=== PATIENT | female | born 1995 | race Two or more races ===

== ENCOUNTER 2018-03-20 10:54 | Emergency (ER) | payer MEDICAID ==
[~2018-03-20] VITALS: Ht 154.9 cm; Wt 61.2 kg
[2018-03-20 11:22] VITALS: BP 107/62
[2018-03-20 12:41] LABS: Basophils # (auto) 0 uL; Basophils % (auto) 0.2 % (0.0-2.0); Eosinophils # (auto) 0 uL; Eosinophils % (auto) 0.4 % (0.0-7.0); Hematocrit 38.4 % (36.0-46.0); Hemoglobin 13.4 g/dL (12.2-16.2); Lymphocytes # (auto) 2.4 uL; Lymphocytes % (auto) 25.9 % (10.0-50.0); Mean Corpuscular Hemoglobin 30.9 pg (28.0-32.0); Mean Corpuscular Hgb Conc. 34.8 g/dL (32.0-36.0); Mean Corpuscular Volume 88.9 fL (80.0-100.0); Monocytes # (auto) 0.6 uL; Monocytes % (auto) 6.3 % (0.0-12.0); Neutrophils # (auto) 6.3 uL; Neutrophils % (auto) 67.2 % (37.0-80.0); Platelet Count (auto) 199 10^3/uL (140-450); Red Blood Cells 4.32 10^6/uL (4.0-5.20); Red Cell Distribution Width 13.5 % (11.8-14.3); White Blood Cell 9.3 10^3/uL (4.4-10.8)
[2018-03-20 13:16] LABS: Urine Bacteria FEW /hpf (None Seen); Urine Blood Negative /uL (Negative); Urine Mucus FEW (None Seen); Urine Specific Gravity 1.024 (1.001-1.035); Urine WBC 16 /hpf (0 - 5)
== END 2018-03-20 17:45 | disposition left against medical advice (07) ==
LOC: ER 10:54
DX: N39.0 Urinary tract infection, site not specified (principal); Z32.01 Encounter for pregnancy test, result positive
CPT/HCPCS: 36415; 81001; 84702; 85025

== ENCOUNTER 2018-09-04 19:46 | Observation (INO) | payer MEDICAID ==
[~2018-09-04] VITALS: Ht 154.9 cm; Wt 70.8 kg
[2018-09-04] MEDS ORDERED: ONDANSETRON ODT 4 MG TAB PO ONE (20:30)
== END 2018-09-04 20:55 | disposition home or self-care (01) | DRG 566 ==
LOC: LDRP 19:46
PROVIDERS: ADMIT Obstetrics & Gynecology; ATTEND Obstetrics & Gynecology
DX: O62.9 Abnormality of forces of labor, unspecified (principal); O21.2 Late vomiting of pregnancy; Z3A.36 36 weeks gestation of pregnancy
CPT/HCPCS: 59025; 81002; G0378; Q0162

== ENCOUNTER 2021-08-09 16:34 | Emergency (ER) | payer MEDICAID ==
[~2021-08-09] VITALS: Ht 154.9 cm; Wt 65.8 kg
[~2021-08-09 16:34] MED LIST: PREN-96 PO
[2021-08-09] MEDS ORDERED: LIDOCAINE 1% HCL (LOCAL ANESTH.) INJ 20ML MDV IJ ONE (20:00)
[2021-08-09] MEDS ORDERED: TETANUS-DIPTH-ACEL PERTUSSIS 0.5ML SYR Tdap IM ONE (20:00)
[2021-08-09 20:56] VITALS: BP 119/58
== END 2021-08-09 20:21 | disposition home or self-care (01) ==
LOC: ER 16:34
DX: S61.412A Laceration without foreign body of left hand, initial encounter (principal); S60.221A Contusion of right hand, initial encounter; Z79.899 Other long term (current) drug therapy; W25.XXXA Contact with sharp glass, initial encounter; Y93.89 Activity, other specified; Y92.89 Other specified places as the place of occurrence of the external cause; Y99.8 Other external cause status
CPT/HCPCS: 12001; 90471; 90715; 99283; J2001

== ENCOUNTER 2022-08-24 17:35 | Inpatient (IN) | payer MEDICAID ==
[~2022-08-24] VITALS: Ht 154.9 cm; Wt 76.2 kg
[2022-08-24 18:33] LABS: Basophils # (auto) 0 10 ^3/uL (0-0.2); Basophils % (auto) 0.2 % (0.0-2.0); Eosinophils # (auto) 0.1 10 ^3/uL (0-0.8); Eosinophils % (auto) 1.1 % (0.0-7.0); Hematocrit 35.9 % (36.0-46.0); Lymphocytes # (auto) 1.8 10 ^3/uL (0.4-5.4); Lymphocytes % (auto) 18.8 % (10.0-50.0); Mean Corpuscular Hemoglobin 29.6 pg (28.0-32.0); Mean Corpuscular Hgb Conc. 33.5 g/dL (32.0-36.0); Mean Corpuscular Volume 88.3 fL (80.0-100.0); Monocytes # (auto) 0.5 10 ^3/uL (0-1.3); Monocytes % (auto) 5.1 % (0.0-12.0); Neutrophils # (auto) 7.2 10 ^3/uL (1.6-8.6); Neutrophils % (auto) 74.8 % (37.0-80.0); Red Blood Cells 4.06 10^6/uL (4.0-5.20); Red Cell Distribution Width 15.8 % (11.8-14.3); White Blood Cell 9.6 10^3/uL (4.4-10.8)
[2022-08-24] MEDS: LACTATED RINGER'S 1,000 ML IV SCH (18:44)
[2022-08-24 18:54] LABS: Albumin 2.7 g/dL (3.4-5.0); Potassium 3.7 mmol/L (3.5-5.1)
[2022-08-24 18:56] LABS: BUN/Creatinine Ratio 11.3
[2022-08-24 18:59] LABS: Bilirubin, Total 0.2 mg/dL (0.2-1.0); Total Protein 7.5 g/dL (6.4-8.2)
[2022-08-24 19:21] LABS: INR 0.9 (0.9-1.15); Partial Thromboplastin Time 28.2 sec (24.6-33.4)
[2022-08-24 19:29] LABS: Urine Bacteria NONE SEEN /hpf (None Seen); Urine Blood Negative /uL (Negative); Urine Specific Gravity 1.005 (1.001-1.035); Urine WBC 8 /hpf (0 - 5)
[2022-08-24] MEDS: miSOPROStol 50 MCG per PRE-CUT 1/2 TAB PO PRN (19:40)
[2022-08-24 19:49] LABS: Alcohol, Urine < 3.0 mg/dL (0-10); Amphetamine Screen, Urine NEGATIVE (NEGATIVE); Barbiturate Scree,Urine NEGATIVE (NEGATIVE); Benzodiazephine Screen, Urine NEGATIVE (NEGATIVE); Cannabinoid Screen, Urine NEGATIVE (NEGATIVE); Cocaine Screen, Urine NEGATIVE (NEGATIVE); Opiate Scree,Urine NEGATIVE (NEGATIVE); Phencyclidine Screen, Urine NEGATIVE (NEGATIVE)
[2022-08-25] MEDS: miSOPROStol 50 MCG per PRE-CUT 1/2 TAB PO PRN (00:01)
[2022-08-25] MEDS: LACTATED RINGER'S 1,000 ML IV SCH (02:00)
[2022-08-25] MEDS ORDERED: PHISODERM TOP SOLN 240ML BTL TOP PRN (04:30)
[2022-08-25] MEDS ORDERED: LIDOCAINE 2%HCL (LOCAL ANESTH.) INJ 10ml MDV IJ PRN (04:30)
[2022-08-25] MEDS ORDERED: WITCH HAZEL-GLYCERIN PAD TOP PRN (04:30)
[2022-08-25] MEDS ORDERED: LACT. RINGERS/OXYTOCIN 20UNITS 500 ML IV ONE ×2 (04:30→05:00)
[2022-08-25] MEDS ORDERED: TERBUTALINE SULFATE 1 MG/ML 1ML VIAL SC PRN ×2 (04:30)
[2022-08-25] MEDS ORDERED: BUTORPHANOL TARTRATE 2 MG/1 ML VIAL IV PRN ×2 (04:30)
[2022-08-25] MEDS ORDERED: PROMETHAZINE HCL 25 MG/ML 1ML IV PRN (04:30)
[2022-08-25] MEDS ORDERED: DERMOPLAST 60ML BOTTLE TOP PRN (04:30)
[2022-08-25] MEDS ORDERED: IBUPROFEN 600 MG TAB PO PRN (07:00)
[2022-08-25] MEDS ORDERED: ACETAMINOPHEN 325 MG TAB PO PRN (07:00)
[2022-08-25] MEDS ORDERED: ONDANSETRON ODT 4 MG TAB PO PRN (07:00)
[2022-08-25 11:00] VITALS: BP 97/52
[2022-08-26 08:06] LABS: RPR Non Reactive (Non Reactive)
== END 2022-08-25 14:10 | disposition home or self-care (01) | DRG 560 ==
LOC: LDRP 17:35
PROVIDERS: ADMIT Obstetrics & Gynecology; ATTEND Obstetrics & Gynecology
PROC: 10E0XZZ Delivery of Products of Conception, External Approach (ICD-10-PCS; principal; 2022-08-25)
DX: O60.12X0 Preterm labor second trimester with preterm delivery second trimester, not applicable or unspecified (principal); Z37.1 Single stillbirth; O36.4XX0 Maternal care for intrauterine death, not applicable or unspecified; Z20.822 Contact with and (suspected) exposure to COVID-19; Z3A.22 22 weeks gestation of pregnancy
CPT/HCPCS: 36415; 59025; 59409; 76815; 80053; 80307; 81001; 81002; 85025; 85362; 85384; 85610; 85730; 86592; 86850; 86900; 86901; 87426; 94760; 94762; 96360; 96361; 96365; 96366; G0378; J2590